=== PATIENT | male | born 1945 | race Caucasian/White ===

== ENCOUNTER → 2018-02-27 11:29 | Outpatient (CLI) | payer MEDICARE, OTHER, SELFPAY ==
[2018-02-27 13:22] LABS: PSA,Total- Diagnostic 7.47 ng/mL (0.0-4.0)
== END ==
PROVIDERS: Referring Provider Nurse Practitioner Adult Health; Visit Provider Nurse Practitioner Adult Health
DX: R97.20 Elevated prostate specific antigen [PSA] (principal)
CPT/HCPCS: 36415; 84153

== ENCOUNTER → 2018-03-15 08:54 | Outpatient (CLI) | payer MEDICARE, OTHER, SELFPAY ==
[2015-07-15 06:10] VITALS: BMI 30.8
--- NOTE | 2018-03-15 | IMM_PTH ---
PATIENT: RAYMUNDO PITTMAN LOC: [facility] U#:[id number] AGE/SX: 79/M ROOM: RE03/15/[address]: Dr. José Mcgovern MD : 1945 BED: DIS: SPEC #: [id number] RECD: 03/19/18 13:38 STATUS: ROSANNA REGaye #: [id number] SANDY: 03/15/18 00:[address]: José Mcgovern DEPT: IMMUNOHISTOCHEMISTRY RECD BY: Morena Boyle ENTERED: 03/19/18 13:39 SP TYPE: IMMUNO OTHR DR: Dr. Teri Hawkinsnner, Tissues: E - PROSTATE LEFT Procedures: P40 (add) 34BE12 (initial) PHYSICIAN & [place] [id number] SPECIMEN INFORMATION: Tissue Source: E - Left prostate, mid, core biopsy Clinical Info: Elevated PSA Specimen Number: [id number] CPT code: 41337, 55123 METHODOLOGY: Deparaffinized sections of prefer/formalin-fixed tissue or PAP/DQ stained slides are incubated with monoclonal/polyclonal antibodies/oligonucleotide probes. Localization is made via biotin free immunoperoxidase method. Appropriate controls are performed and reacted as expected. Results on target cell population are indicated in the following table: RESULTS: ANTIBODY / CLONE RESULT Block E P40 (BC28) negative 34BE12 (34BE12) negative These tests were developed and their performance characteristics determined by [facility]. They may not have been cleared or approved by the U.S. Food and Drug Administration. The FDA has determined that such clearance or approval is not necessary. INTERPRETATION: E. Left prostate, mid, core biopsy: Adenocarcinoma. SJ:paris 03/20/18
--- NOTE | 2018-03-15 08:00 | PROSBIL_PTH ---
PATIENT: RAYMUNDO PITTMAN LOC: [facility] U#:[id number] AGE/SX: 79/M ROOM: RE03/15/[address]: Dr. José Mcgovern MD : 1945 BED: DIS: SPEC #: [id number] RECD: 03/15/18 16:44 STATUS: ROSANNA CLAYTON #: [id number] SANDY: 03/15/18 08:[address]: José Mcgovern DEPT: SURGICAL PATHOLOGY RECD BY: Ramana White ENTERED: 03/19/18 09:06 SP TYPE: PROST BX ROSEANN DR: Dr. Teri Oconnor DO Tissues: A - PROSTATE RIGHT B - PROSTATE RIGHT C - PROSTATE RIGHT D - PROSTATE LEFT E - PROSTATE LEFT F - PROSTATE LEFT Procedures: PROSTATE BX HEADER OPERATION: Prostate biopsy PRE-OP DIAGNOSIS: Elevated PSA TISSUE SUBMITTED: A - Right apex, B - Right mid, C - Right base, D - Left apex, E - Left mid, F - Left base MICROSCOPIC DIAGNOSIS A. Right prostate, apex, core biopsy: Focal high-grade prostatic intraepithelial neoplasia (HGPIN). B. Right prostate, mid, core biopsy: Focal high-grade prostatic intraepithelial neoplasia (HGPIN). C. Right prostate, base, core biopsy: Focal high-grade prostatic intraepithelial neoplasia (HGPIN). D. Left prostate, apex, core biopsy: Prostatic tissue, consisting predominantly of stromal tissue, negative for malignancy. E. Left prostate, mid, core biopsy: Prostatic adenocarcinoma: [place] grade: 3+3=6 Number of cores involved: 2 out of 2 Proportion of tissue involved: ~ 5% Perineural invasion: Not identified. Greatest tumor length: 0.1 cm Focal high-grade prostatic intraepithelial neoplasia (HGPIN). See comment. F. Left prostate, base, core biopsy: Prostatic adenocarcinoma: [place] grade: 3+3=6 Number of cores involved: 2 out of 2 Proportion of tissue involved: 60-70% Perineural invasion: Present. Greatest tumor length: 0.4 cm SYLVESTER:paris 03/19/18 COMMENT E. Immunohistochemistry ([id number]) supports the above diagnosis. Case has been reviewed in consultation with Dr. Harp who concurs with the above diagnosis. IDC:AM MICROSCOPIC DESCRIPTION Slides are reviewed. GROSS DESCRIPTION A - Received is one container designated prostate, right apex. The specimen consists of two elongated fragments of light ferreira-white soft tissue each measuring 5 mm in length and 0.1 cm in diameter. The specimen is totally submitted in one cassette. B - Received is one container designated prostate, right mid. The specimen consists of two elongated fragments of light ferreira-white soft tissue each measuring 1 cm in length and 0.1 cm in diameter. The specimen is totally submitted in one cassette. C - Received is one container designated prostate, right base. The specimen consists of two elongated fragments of light ferreira-white soft tissue each measuring 1 cm in length and 0.1 cm in diameter. The specimen is totally submitted in one cassette. D - Received is one container designated prostate, left apex. The specimen consists of two elongated fragments of light ferreira-white soft tissue each measuring 5 mm in length and 0.1 cm in diameter. The specimen is totally submitted in one cassette. E - Received is one container designated prostate, left mid. The specimen consists of two elongated fragments of light ferreira-white soft tissue each measuring 7 mm cm in length and 0.1 cm in diameter. The specimen is totally submitted in one cassette. F - Received is one container designated prostate, left base. The specimen consists of two elongated fragments of light ferreira-white soft tissue each measuring 1 cm in length and 0.1 cm in diameter. The specimen is totally submitted in one cassette. / AM:paris 03/16/18 TC:0 CPT: G0146 ADDENDUM ADDENDUM ADDENDUM ADDENDUM ADDENDUM ADDENDUM ADDENDUM ADDENDUM 04/18/2018 10:55 ADDENDUM 04/18/2018 10:55 ADDENDUM 04/18/2018 10:55 ADDENDUM 04/18/2018 10:55 ADDENDUM 04/18/2018 10:55 An order for Oncotype testing was received from Dr. Mcgovern. This necessitated case review, block and slide selection by pathologist at [facility]. Genomic Prostate Score = 31 Results of the complete Oncotype testing (Natanael Ulien report) are viewable in EMR under: Reports - Pathology - Lab Pathology Report, Scanned.
== END ==
PROVIDERS: Referring Provider Urology; Visit Provider Urology
DX: R97.20 Elevated prostate specific antigen [PSA] (principal)
CPT/HCPCS: 88305; 88341; 88342; G0416

== ENCOUNTER → 2018-11-08 | Outpatient (CLI) | payer MEDICARE, OTHER, SELFPAY ==
[2015-07-15 06:10] VITALS: BMI 30.8
[2018-11-08 14:48] LABS: PSA,Total- Diagnostic 7.18 ng/mL (0.0-4.0)
== END | disposition home or self-care (01) ==
LOC: LAB 13:15
PROVIDERS: Referring Provider Urology; Visit Provider Urology
DX: C61 Malignant neoplasm of prostate (principal); R97.20 Elevated prostate specific antigen [PSA]
CPT/HCPCS: 36415; 84153

== ENCOUNTER → 2019-05-06 | Outpatient (CLI) | payer MEDICARE, OTHER, SELFPAY ==
[2015-07-15 06:10] VITALS: BMI 30.8
== END | disposition home or self-care (01) ==
LOC: LAB 10:02
PROVIDERS: Visit Provider Urology
DX: C61 Malignant neoplasm of prostate (principal)
CPT/HCPCS: 36415; 84153

== ENCOUNTER → 2019-05-27 | Outpatient (CLI) | payer MEDICARE, OTHER, SELFPAY ==
[2015-07-15 06:10] VITALS: BMI 30.8
--- NOTE | 2019-05-27 | IMM_PTH ---
PATIENT: RAYMUNDO PITTMAN LOC: [facility] U#:[id number] AGE/SX: 73/M ROOM: RE05/27/[address]: Dr. José Mcgovern MD : 1945 BED: DIS: 05/27/2019 SPEC #: [id number] RECD: 05/29/19 12:16 STATUS: ROSANNA REGaye #: [id number] SANDY: 05/27/19 00:[address]: José Mcgovern DEPT: IMMUNOHISTOCHEMISTRY RECD BY: Morena Boyle ENTERED: 05/29/19 12:18 SP TYPE: IMMUNO OTHR DR: Dr. Teri Oconnor DO Tissues: E - PROSTATE LEFT Procedures: P40 (add) 34BE12 (initial) PHYSICIAN & INSTITUTION [place] [id number] SPECIMEN INFORMATION: Tissue Source: E - Left prostate, mid, core biopsy Clinical Info: Elevated PSA Specimen Number: [id number] CPT code: 50989, 87661 METHODOLOGY: Deparaffinized sections of prefer/formalin-fixed tissue or PAP/DQ stained slides are incubated with monoclonal/polyclonal antibodies/oligonucleotide probes. Localization is made via biotin free immunoperoxidase method. Appropriate controls are performed and reacted as expected. Results on target cell population are indicated in the following table: RESULTS: ANTIBODY / CLONE RESULT Block E P40 (BC28) negative 34BE12 (34BE12) negative These tests were developed and their performance characteristics determined by [facility]. They may not have been cleared or approved by the U.S. Food and Drug Administration. The FDA has determined that such clearance or approval is not necessary. The above immunohistochemical/dualISH markers are ordered and reviewed by the Pathologist. INTERPRETATION: E. Left prostate, mid, core biopsy: Two minute foci of adenocarcinoma. SJ:paris 05/29/19
--- NOTE | 2019-05-27 11:30 | PROSBIL_PTH ---
PATIENT: RAYMUNDO PITTMAN LOC: [facility] U#:[id number] AGE/SX: 73/M ROOM: RE05/27/[address]: Dr. José Mcgovern MD : 1945 BED: DIS: 05/27/2019 SPEC #: [id number] RECD: 05/27/19 18:23 STATUS: ROSANNA REGaye #: [id number] SANDY: 05/27/19 11:[address]: José Mcgovern DEPT: SURGICAL PATHOLOGY RECD BY: Edgar Stephens ENTERED: 05/28/19 11:05 SP TYPE: PROST BX ROSEANN DR: Dr. Teri Oconnor, Tissues: A - PROSTATE RIGHT B - PROSTATE RIGHT C - PROSTATE RIGHT D - PROSTATE LEFT E - PROSTATE LEFT F - PROSTATE LEFT Procedures: PROSTATE BX HEADER OPERATION: Prostate biopsy PRE-OP DIAGNOSIS: Elevated PSA TISSUE SUBMITTED: A - Right apex, B - Right mid, C - Right base, D - Left apex, E - Left mid, F - Left base MICROSCOPIC DIAGNOSIS A. Right prostate, apex, core biopsy: Focal high-grade prostatic intraepithelial neoplasia (HGPIN). B. Right prostate, mid, core biopsy: Focal high-grade prostatic intraepithelial neoplasia (HGPIN). C. Right prostate, base, core biopsy: Prostatic tissue, negative for malignancy. D. Left prostate, apex, core biopsy: Prostatic tissue, negative for malignancy. E. Left prostate, mid, core biopsy: Two minute foci of prostatic adenocarcinoma. [place] grade: 3+3=6 Number of cores involved: 2/2 Proportion of tissue involved: <5% Perineural invasion: Not identified. Greatest tumor length: <0.1 cm Focal high-grade prostatic intraepithelial neoplasia (HGPIN). See comment. F. Left prostate, base, core biopsy: Prostatic adenocarcinoma. [place] grade: 3+3=6 Number of cores involved: 2/2 Proportion of tissue involved: ~80% Perineural invasion: Present. Greatest tumor length: 0.7 cm SJ:paris 05/29/19 COMMENT E. Immunohistochemistry ([id number]) supports the above diagnosis. Please make reference to previous specimen ([id number]) left prostate, mid and left prostate, base with diagnosis of adenocarcinoma and right prostate, apex, right prostate, mid and right prostate, base with diagnosis of focal high-grade prostatic intraepithelial neoplasia. Case has been reviewed in consultation with Dr. Harp who concurs with the above diagnosis. IDC:AM MICROSCOPIC DESCRIPTION Slides are reviewed. GROSS DESCRIPTION A - Received is one container designated prostate, right apex. The specimen consists of two elongated fragments of light ferreira-white soft tissue each measuring 0.6 cm in length and 0.1 cm in diameter. The specimen is totally submitted in one cassette. B - Received is one container designated prostate, right mid. The specimen consists of two elongated fragments of light ferreira-white soft tissue each measuring 1 cm in length and 0.1 cm in diameter. The specimen is totally submitted in one cassette. C - Received is one container designated prostate, right base. The specimen consists of one elongated fragment of light ferreira-white soft tissue measuring 1 cm in length and 0.1 cm in diameter. The specimen is totally submitted in one cassette. D - Received is one container designated prostate, left apex. The specimen consists of one elongated fragment of light ferreira-white soft tissue measuring 0.6 cm in length and 0.1 cm in diameter. The specimen is totally submitted in one cassette. E - Received is one container designated prostate, left mid. The specimen consists of two elongated fragments of light ferreira-white soft tissue each measuring 1 cm in length and 0.1 cm in diameter. The specimen is totally submitted in one cassette. F - Received is one container designated prostate, left base. The specimen consists of two elongated fragments of light ferreira-white soft tissue each measuring 1 cm in length and 0.1 cm in diameter. The specimen is totally submitted in one cassette. / AM:par[place] 05/28/19 TC:0 [facility]: [id number]
== END | disposition home or self-care (01) ==
LOC: LABSPEC 16:57
PROVIDERS: Referring Provider Urology; Visit Provider Urology
DX: R97.20 Elevated prostate specific antigen [PSA] (principal)
CPT/HCPCS: 88305; 88341; 88342; G0416

== ENCOUNTER → 2019-12-11 09:20 | Outpatient (CLI) | payer MEDICARE, OTHER, SELFPAY ==
[2015-07-15 06:10] VITALS: BMI 30.8
[2019-12-11 10:45] LABS: PSA,Total- Diagnostic 8.93 ng/mL (0.0-4.0)
== END ==
PROVIDERS: Referring Provider Urology; Visit Provider Urology
DX: C61 Malignant neoplasm of prostate (principal)
CPT/HCPCS: 36415; 84153

== ENCOUNTER → 2020-06-09 10:20 | Outpatient (CLI) | payer MEDICARE, OTHER, SELFPAY ==
[2015-07-15 06:10] VITALS: BMI 30.8
[2020-06-09 12:54] LABS: PSA,Total- Diagnostic 9.55 ng/mL (0.0-4.0)
== END ==
PROVIDERS: Referring Provider Urology; Visit Provider Urology
DX: C61 Malignant neoplasm of prostate (principal)
CPT/HCPCS: 36415; 84153